=== PATIENT | male | born 1955 | race Caucasian/White ===

== ENCOUNTER 2021-09-01 15:49 | Observation (INO) | payer MEDICARE ==
[2021-09-01] MEDS ORDERED: Sodium Chloride 0.9% 1000 ML 0 ML ONE (17:11)
[2021-09-01] MEDS: Sodium Chloride 0.9% 1000 ML 1,000 ML IV SCH (17:25)
[2021-09-01] MEDS ORDERED: Sodium Chloride 0.9% 1000 ML 1,000 ML ONE (17:26)
[2021-09-01 18:07] LABS: Basophil (Absolute #) 0.03 (0-0.4); Eosinophil % 4.2 % (0.00-5.0); Eosinophil (Absolute #) 0.27 (0-0.5); Hematocrit 47.6 % (42-50); Hemoglobin 15.4 gm/dl (12.5-18.0); Lymphocyte (Absolute #) 1.69 (1.0-4.6); Lymphocytes % 26.4 % (24.0-44.0); Mean Cell Volume 96.6 fl (78-100); Mean Corpuscular Hemoglobin 31.2 pg (26-32); Mean Corpuscular Hgb Concent. 32.4 g/dl (32-36); Mean Platelet Volume 10.3 fl (7.5-11.0); Neutrophil % 57.9 % (36.0-66.0); Platelet Count 168 K/mm3 (150-450); Red Blood Count 4.93 M/mm3 (4.1-5.6); Red Cell Distribution Width 12.8 % (11.5-14.0); White Blood Count 6.4 K/mm3 (4.0-10.5)
[2021-09-01 18:12] LABS: INFLUENZA A NEGATIVE (NEGATIVE); INFLUENZA B NEGATIVE (NEGATIVE)
--- NOTE | 2021-09-01 18:18 | ERPHSYRPT ---
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 I had a bit of a cough and when I went to the grocery store later that day, I got winded pushing a cart and thought to myself something is not right." Triage Nursing Assessment: PT presented alert and oriented X3, skin wpd Pt ambulates with an upright steady gait, able to speak in clear full sentences pt got slightly short of breath ambulating to the bathroom. Physician History: This is a 66-year-old white male patient who is a [id number] diabetic and has elevated cholesterol who presents with worsening shortness of breath since Monday prior to this evaluation. The symptoms seem to be worse with exertion. He also has some substernal nonradiating, central chest tightness. He has no cardiac history. He does not see a overnight babysitter. His primary care physician is Dr. Jj. He is not vaccinated against the COVID-19 virus. He states he recently had a negative Covid test. Patient has no abdominal pain. He has not had any fevers recorded. He has no nausea vomiting or diarrhea symptoms. Patient's room air oxygenation levels running 97%. Patient states at home they have a pulse oximeter and it was running around 95%. Timing/Duration: worse Severity: mild Associated Symptoms: shortness of breath, cough, No nausea, No vomiting, No abdominal pain, No weakness Allergies/Adverse Reactions: No Known Drug Allergies Allergy (Verified 09/01/21 16:36) Home Medications: Atorvastatin Calcium [Lipitor 20MG Tablet] 20 mg PO DAILY 09/01/21 [History] Glimepiride 4 mg [Amaryl 4 mg] 4 mg PO DAILY 09/01/21 [History] Hx Tetanus, Diphtheria Vaccination/Date Given: Yes Hx Influenza Vaccination/Date Given: No Hx Pneumococcal Vaccination/Date Given: No Immunizations Up to Date: Yes Travel Risk - International Travel Have you traveled outside of the country in past 3 weeks: No - Coronavirus Screening Are you exhibiting any of the following symptoms?: Yes Symptoms: Cough: New Onset, Shortness of Breath Close contact with a COVID-19 positive Pt in past 14-21 Days: No - Vaccine Status Have you recieved a Covid-19 vaccination: No - Review of Systems Constitutional: No Symptoms Eyes: No Symptoms Ears, Nose, & Throat: No Symptoms Respiratory: Dyspnea, Dyspnea on Exertion (LOCKETT) Cardiac: Chest Pain (Described as substernal, central, nonradiating tightness) Abdominal/Gastrointestinal: No Symptoms Genitourinary Symptoms: No Symptoms Musculoskeletal: No Symptoms Skin: No Symptoms Neurological: No Symptoms Psychological: No Symptoms Endocrine: No Symptoms Hematologic/Lymphatic: No Symptoms Immunological/Allergic: No Symptoms All Other Systems: Reviewed and Negative - Past Medical History Pertinent Past Medical History: Yes Cardiac History: High Cholesterol Endocrine Medical History: Diabetes Type II - Past Surgical History Past Surgical History: Yes Other Surgical History: back surgery. left kidney malformed - Social History Smoking Status: Never smoker Exposure to second hand smoke: No Drug Use: none Patient Lives Alone: No - Nursing Vital Signs Nursing Vital Signs: Initial Vital Signs Temperature 97.8 F 09/01/21 16:22 Pulse Rate 85 09/01/21 16:22 Respiratory Rate 20 09/01/21 16:22 Blood Pressure 162/89 09/01/21 16:22 O2 Sat by Pulse Oximetry 97 09/01/21 16:22 Pain Scale Pain Intensity 0 - Physical Exam General Appearance: no apparent distress, alert, anxiety Eye Exam: PERRL/EOMI, eyes nml inspection Ears, Nose, Throat Exam: normal ENT inspection, moist mucous membranes Neck Exam: normal inspection, non-tender, supple, full range of motion Respiratory Exam: normal breath sounds, chest tenderness, lungs clear, respiratory distress, airway intact Cardiovascular Exam: regular rate/rhythm, normal heart sounds, normal peripheral pulses Gastrointestinal/Abdomen Exam: soft, normal bowel sounds, No tenderness, No guarding Rectal Exam: not done Back Exam: normal inspection, normal range of motion, No CVA tenderness, No vertebral tenderness Extremity Exam: normal inspection, normal range of motion, pelvis stable Neurologic Exam: alert, oriented x 3, cooperative, piercer operator II-XII nml as tested, normal mood/affect, nml cerebellar function, nml station & gait, sensation nml Skin Exam: normal color, warm, dry Lymphatic Exam: No adenopathy SpO2 Interpretation: normal SpO2: 96 O2 Delivery: Room Air - Course Nursing assessment & vital signs reviewed: Yes EKG Interpreted by Me: RATE (70), Sinus Rhythm, NORMAL AXIS, NORMAL INTERVALS, NORMAL QRS, NORMAL ST-T, Other (No acute ischemic changes on today's EKG. No comparison EKG.) Ordered Tests: Active Orders 24 hr Category Date Time Status [facility] Specialist STAT Care 09/01/21 16:59 Active EKG-ER Only STAT Care 09/01/21 16:59 Active IV Insertion STAT Care 09/01/21 16:59 Active Isolation, Initiate & Maintain STAT Care 09/01/21 16:58 Active Isolation, Initiate & Maintain STAT Care 09/01/21 16:59 Active Pulse Oximetry (ED) STAT Care 09/01/21 16:59 Active CHEST 1 VIEW (PORTABLE) Stat Exams 09/01/21 16:59 Taken CHEST WITH CONTRAST [CT] Stat Exams 09/01/21 18:44 Taken BLOOD CULTURE Stat Lab 09/01/21 17:49 Received CBC W DIFF Stat Lab 09/01/21 17:49 Completed CMP Stat Lab 09/01/21 17:49 Completed D-DIMER QUANTITATIVE Stat Lab 09/01/21 17:49 Completed INFLUENZA A+B DHARA Stat Lab 09/01/21 17:38 Completed Lactic Acid Stat Lab 09/01/21 17:46 Completed [place] Screen Stat Lab 09/01/21 17:49 Completed TROPONIN Q3H Lab 09/01/21 17:49 Completed TROPONIN Q3H Lab 09/01/21 20:00 Ordered TROPONIN Q3H Lab 09/01/21 23:00 Ordered Transfer Order Routine Transfer 09/01/21 Ordered Medication Summary Generic Name Dose Route Start Last Admin Trade Name Freq PRN Reason Stop Dose Admin Sodium Chloride 1,000 mls @ 100 mls/hr 09/01/21 17:00 09/01/21 17:25 Sodium Chloride 0.9% 1000 Ml IV 10/01/21 16:59 100 mls/hr .Q10H BUCKY Administration Discontinued Medications Generic Name Dose Route Start Last Admin Trade Name Freq PRN Reason Stop Dose Admin Apixaban 10 mg 09/01/21 19:52 Apixaban 2.5 Mg Tablet PO 09/01/21 19:53 STAT ONE Enoxaparin Sodium 80 mg 09/01/21 19:48 09/01/21 20:00 Enoxaparin Sodium 80 Mg/0.8 Ml Syringe SQ 09/01/21 19:49 80 mg STAT ONE Administration Enoxaparin Sodium Confirm 09/01/21 19:59 Enoxaparin Sodium 80 Mg/0.8 Ml Syringe Administered 09/01/21 20:00 Dose 80 mg SQ .STK-MED ONE Lab/Rad Data: Laboratory Result Diagrams 09/01/21 17:49 09/01/21 17:49 Laboratory Results 09/01/21 09/01/21 09/01/21 Range/Units 17:49 17:49 17:49 WBC (4.0-10.5) K/mm3 RBC (4.1-5.6) M/mm3 Hgb (12.5-18.0) gm/dl Hct (42-50) % MCV (78-100) fl MCH (26-32) pg MCHC (32-36) g/dl RDW (11.5-14.0) % Plt Count (150-450) K/mm3 MPV (7.5-11.0) fl Gran % (36.0-66.0) % Eos # (Auto) (0-0.5) Absolute Lymphs (auto) (1.0-4.6) Absolute Monos (auto) (0.0-1.3) Lymphocytes % (24.0-44.0) % Monocytes % (0.0-12.0) % Eosinophils % (0.00-5.0) % Basophils % (0.0-0.4) % Absolute Granulocytes (1.4-6.9) Basophils # (0-0.4) D-Dimer 19522 H* (215-500) ng/mL Sodium (137-145) mmol/L Potassium (3.5-5.1) mmol/L Chloride (98-107) mmol/L Carbon Dioxide (22-30) mmol/L Anion Gap (5-15) MEQ/L BUN (9-20) mg/dL Creatinine (0.66-1.25) mg/dL Estimated GFR ML/MIN Glucose (74-106) mg/dL Lactic Acid (0.4-2.0) Calcium (8.4-10.2) mg/dL Total Bilirubin (0.2-1.3) mg/dL AST (17-59) U/L ALT (0-50) U/L Alkaline Phosphatase (38-126) U/L Troponin I 0.013 (0.000-0.034) ng/mL Serum Total Protein (6.3-8.2) g/dL Albumin (3.5-5.0) g/dL Monoscreen NEGATIVE (Negative) Influenza Type A Ag (NEGATIVE) Influenza Type B Ag (NEGATIVE) Group A Strep Antibody (NEGATIVE) 09/01/21 09/01/21 09/01/21 Range/Units 17:49 17:49 17:46 WBC 6.4 (4.0-10.5) K/mm3 RBC 4.93 (4.1-5.6) M/mm3 Hgb 15.4 (12.5-18.0) gm/dl Hct 47.6 (42-50) % MCV 96.6 (78-100) fl MCH 31.2 (26-32) pg MCHC 32.4 (32-36) g/dl RDW 12.8 (11.5-14.0) % Plt Count 168 (150-450) K/mm3 MPV 10.3 (7.5-11.0) fl Gran % 57.9 (36.0-66.0) % Eos # (Auto) 0.27 (0-0.5) Absolute Lymphs (auto) 1.69 (1.0-4.6) Absolute Monos (auto) 0.70 (0.0-1.3) Lymphocytes % 26.4 (24.0-44.0) % Monocytes % 11.0 (0.0-12.0) % Eosinophils % 4.2 (0.00-5.0) % Basophils % 0.5 (0.0-0.4) % Absolute Granulocytes 3.70 (1.4-6.9) Basophils # 0.03 (0-0.4) D-Dimer (215-500) ng/mL Sodium 135 L (137-145) mmol/L Potassium 4.6 (3.5-5.1) mmol/L Chloride 101 (98-107) mmol/L Carbon Dioxide 27 (22-30) mmol/L Anion Gap 11.4 (5-15) MEQ/L BUN 16 (9-20) mg/dL Creatinine 1.11 (0.66-1.25) mg/dL Estimated GFR > 60.0 ML/MIN Glucose 84 (74-106) mg/dL Lactic Acid 1.1 (0.4-2.0) Calcium 9.5 (8.4-10.2) mg/dL Total Bilirubin 1.00 (0.2-1.3) mg/dL AST 27 (17-59) U/L ALT 29 (0-50) U/L Alkaline Phosphatase 94 (38-126) U/L Troponin I (0.000-0.034) ng/mL Serum Total Protein 6.1 L (6.3-8.2) g/dL Albumin 3.7 (3.5-5.0) g/dL Monoscreen (Negative) Influenza Type A Ag (NEGATIVE) Influenza Type B Ag (NEGATIVE) Group A Strep Antibody (NEGATIVE) 09/01/21 09/01/21 Range/Units 17:38 17:37 WBC (4.0-10.5) K/mm3 RBC (4.1-5.6) M/mm3 Hgb (12.5-18.0) gm/dl Hct (42-50) % MCV (78-100) fl MCH (26-32) pg MCHC (32-36) g/dl RDW (11.5-14.0) % Plt Count (150-450) K/mm3 MPV (7.5-11.0) fl Gran % (36.0-66.0) % Eos # (Auto) (0-0.5) Absolute Lymphs (auto) (1.0-4.6) Absolute Monos (auto) (0.0-1.3) Lymphocytes % (24.0-44.0) % Monocytes % (0.0-12.0) % Eosinophils % (0.00-5.0) % Basophils % (0.0-0.4) % Absolute Granulocytes (1.4-6.9) Basophils # (0-0.4) D-Dimer (215-500) ng/mL Sodium (137-145) mmol/L Potassium (3.5-5.1) mmol/L Chloride (98-107) mmol/L Carbon Dioxide (22-30) mmol/L Anion Gap (5-15) MEQ/L BUN (9-20) mg/dL Creatinine (0.66-1.25) mg/dL Estimated GFR ML/MIN Glucose (74-106) mg/dL Lactic Acid (0.4-2.0) Calcium (8.4-10.2) mg/dL Total Bilirubin (0.2-1.3) mg/dL AST (17-59) U/L ALT (0-50) U/L Alkaline Phosphatase (38-126) U/L Troponin I (0.000-0.034) ng/mL Serum Total Protein (6.3-8.2) g/dL Albumin (3.5-5.0) g/dL Monoscreen (Negative) Influenza Type A Ag NEGATIVE (NEGATIVE) Influenza Type B Ag NEGATIVE (NEGATIVE) Group A Strep Antibody NOT DETECTED (NEGATIVE) - Progress Progress Note: 09/01/21 18:23 Chest x-ray shows no acute cardiopulmonary process. 09/01/21 19:45 CAT scan of the chest with contrast shows diffuse bilateral nonoccluding pulmonary emboli left side greater than right. Medical decision making: This patient has bilateral nonoccluding pulmonary em boli. I spoke with his primary care doctor, Dr. Jj. We will start him on Lovenox and either Xarelto or Eliquis. We will check him for COVID-19 infection to determine whether or not the patient will be placed in the Covid unit or remain in our emergency department until a bed opens up. There are no beds available at several different hospitals so we are unable to transfer this patient out. The patient is aware of the above and agrees to follow this plan. Discussed with : Inna Counseled pt/family regarding: lab results, diagnosis, need for follow-up, rad results - Departure Departure Disposition: Observation (35) Clinical Impression: Shortness of breath, Pulmonary embolism, bilateral Condition: Fair Critical Care Time: Yes Critical Care Time(excluding separately billable procedures): Critical 30-74 mins Referrals: BROOKS JJ MD [Primary Care Provider] - Follow up/PCP as directed
[2021-09-01 18:25] LABS: ALBUMIN 3.7 g/dL (3.5-5.0); ALKALINE PHOSPHATASE 94 U/L (38-126); ANION GAP 11.4 MEQ/L (5-15); BLOOD UREA NITROGEN 16 mg/dL (9-20); CHLORIDE 101 mmol/L (98-107); Calcium 9.5 mg/dL (8.4-10.2); Carbon Dioxide 27 mmol/L (22-30); Creatinine 1 1.11 mg/dL (0.66-1.25); EST GLOMERULAR FILTRATION RATE > 60.0 ML/MIN; Glucose 84 mg/dL (74-106); Potassium 4.6 mmol/L (3.5-5.1); SGOT/AST 27 U/L (17-59); SGPT/ALT 29 U/L (0-50); SODIUM 135 mmol/L (137-145); Total Protein 6.1 g/dL (6.3-8.2)
[2021-09-01] MEDS ORDERED: ENOXAPARIN SODIUM SQ ONE ×2 (19:48→19:59)
[2021-09-01] MEDS ORDERED: ELIQUIS 2.5 MG TABLET PO ONE (19:52)
[2021-09-01 21:04] LABS: INFLUENZA A NEGATIVE (NEGATIVE); INFLUENZA B NEGATIVE (NEGATIVE); RESPIRATORY SYNCTIAL VIRUS NEGATIVE (Negative); SARS-CoV-2 Xpert Express NEGATIVE (NEGATIVE)
[2021-09-02] MEDS ORDERED: TYLENOL 325 MG PO PRN ×2 (06:47→13:03)
[2021-09-02] MEDS ORDERED: Zofran 4 MG/2 ML VIAL IV PRN ×2 (06:47→13:03)
[2021-09-02] MEDS ORDERED: Sodium Chloride 0.9% 1000 ML 1,000 ML ONE (06:59)
[2021-09-02] MEDS ORDERED: ENOXAPARIN SODIUM SQ ONE (06:59)
[2021-09-02] MEDS: ENOXAPARIN SODIUM SQ SCH (07:00)
[2021-09-02] MEDS: Sodium Chloride 0.9% 1000 ML 1,000 ML IV SCH (07:00)
[2021-09-02] MEDS: ELIQUIS 2.5 MG TABLET PO SCH ×3 (07:06→22:38)
--- NOTE | 2021-09-02 08:48 | XRAY ---
Indication: Cough and short of breath. Comparison: None Portable chest is clear. Heart and mediastinal structures within normal limits. Bony thorax intact with mild osteopenia and degenerative changes. Impression: Nonacute chest.
--- NOTE | 2021-09-02 08:52 | XRAY ---
Indication: Cough, short of breath, chest tightness/heaviness, and elevated d-dimer. Multiple contiguous axial images obtained through the chest using 100 cc Isovue 370 contrast and PE protocol. Comparison: None There is good opacification of the pulmonary arteries. Nonoccluding pulmonary emboli seen in the distal left main pulmonary artery extending into all lobar and lesser degree segmental branches. Additional tiny nonoccluding pulmonary emboli seen in distal right upper/right lower lobes pulmonary arteries extending into segmental branches. Heart is not enlarged. Aorta is normal in course and caliber. No pathologic mediastinal/hilar lymphadenopathy. Lungs demonstrates mild scattered peripheral subsegmental atelectasis/scarring and tiny posterior left lower lobe calcified granuloma. No suspicious pulmonary mass, infiltrate, consolidation, or effusion. Bony thorax intact with mild osteopenia and moderate degenerative changes throughout the spine. Limited upper abdomen demonstrate mild diffuse fatty liver and bilateral renal cortical scarring/thinning. Left kidney demonstrates subcentimeter benign-appearing cortical calcifications, largest 4 x 9 mm. Impression: 1. Diffuse nonoccluding bilateral pulmonary emboli as detailed. 2. Scattered subsegmental atelectasis/scarring and left lower lobe calcified granuloma. 3. Incidental fatty liver, bilateral renal cortical scarring/thinning, benign appearing left renal cortical calcifications, and chronic bony findings.
[2021-09-02] MEDS: ZOCOR 20MG PO SCH (15:43)
[2021-09-02] MEDS: AMARYL 4 MG PO SCH (15:43)
--- NOTE | 2021-09-02 19:02 | PCM.HP ---
History of Present Illness - Chief Complaint Chief Complaint: sudden onset of shortness of breath for 3-4 hours History of Present Illness: is a 66-year-old white male patient who is a [id number] diabetic and has elevated cholesterol who presents with worsening shortness of breath since Monday prior to this evaluation. The symptoms seem to be worse with exertion. He also has some substernal nonradiating, central chest tightness. He has no cardiac history. He does not see a dispatcher service chief. His primary care physician is Dr. Garcia. He is not vaccinated against the COVID- 19 virus. He states he recently had a negative Covid test. Patient has no abdominal pain. He has not had any fevers recorded. He has no nausea vomiting or diarrhea symptoms. - Review of Systems Constitutional: No Fever, No Chills Eyes: No Symptoms Ears, Nose, & Throat: No Symptoms Respiratory: Short Of Breath, No Cough Cardiac: No Chest Pain, No Edema, No Syncope Abdominal/Gastrointestinal: No Abdominal Pain, No Nausea, No Vomiting, No Diarrhea Genitourinary Symptoms: No Dysuria Musculoskeletal: No Back Pain, No Neck Pain Skin: No Rash Neurological: No Dizziness, No Focal Weakness, No Sensory Changes Psychological: No Symptoms Endocrine: No Symptoms Hematologic/Lymphatic: No Symptoms Immunological/Allergic: No Symptoms Medications & Allergies Home Medications: Home Medication List Atorvastatin Calcium [Lipitor 20MG Tablet] 20 mg PO DAILY 09/01/21 [History Confirmed 09/01/21] Glimepiride 4 mg [Amaryl 4 mg] 4 mg PO DAILY 09/01/21 [History Confirmed 09/01/21] Apixaban [Eliquis] 10 mg PO BID 30 Days #80 tablet 09/02/21 [Rx] Allergies/Adverse Reactions: Allergies Allergy/AdvReac Type Severity Reaction Status Date / Time No Known Drug Allergies Allergy Verified 09/01/21 16:36 - Past Medical History Past Medical History: Yes Cardiac History: High Cholesterol Endocrine Medical History: Diabetes Type II - Past Surgical History Past Surgical History: Yes Other Surgical History: back surgery. left kidney malformed. LITHOTRIPSY - Social History Smoking Status: Never smoker Exposure to second hand smoke: No Alcohol: None Drug Use: none - Physical Exam Vital Signs: Vital Signs - 24 hr Temp Pulse Resp BP Pulse Ox 09/02/21 18:51 92 L 12/30/21 16:00 98.9 F 66 21 148/79 94 L 09/02/21 14:01 98.6 F 67 19 132/79 94 L 09/02/21 13:33 93 L 09/02/21 13:29 71 20 152/78 96 09/02/21 12:00 68 20 133/91 98 09/02/21 11:04 97.2 F 61 20 119/69 97 09/02/21 10:05 97.6 F 64 20 119/69 98 09/02/21 09:40 98.6 F 62 18 117/75 98 09/02/21 08:36 98.6 F 67 20 129/79 98 09/02/21 07:00 62 24 138/88 94 L 09/02/21 06:00 54 L 20 136/82 96 09/02/21 05:00 73 21 128/79 97 09/02/21 04:00 59 L 22 130/85 96 09/02/21 03:00 63 22 141/89 97 09/02/21 02:00 65 28 H 134/88 96 09/02/21 01:00 66 18 135/82 95 09/02/21 00:00 65 20 166/82 92 L 09/01/21 23:00 74 22 150/92 94 L 09/01/21 22:00 79 24 148/83 91 L 09/01/21 21:00 80 24 157/90 96 09/01/21 20:10 85 25 H 155/91 93 L 09/01/21 20:02 96 09/01/21 19:22 73 25 H 142/87 94 L General Appearance: no apparent distress, alert Neurologic Exam: alert, oriented x 3, cooperative, normal mood/affect, nml cerebellar function, nml station & gait, sensation nml, No motor deficits Eye Exam: PERRL/EOMI, eyes nml inspection Ears, Nose, Throat Exam: normal ENT inspection, TMs normal, pharynx normal, moist mucous membranes Neck Exam: normal inspection, non-tender, supple, full range of motion Respiratory Exam: rhonchi, wheezing, No respiratory distress Cardiovascular Exam: regular rate/rhythm, normal heart sounds, normal peripheral pulses Gastrointestinal/Abdomen Exam: soft, normal bowel sounds, No tenderness, No mass Back Exam: normal inspection, normal range of motion, No CVA tenderness, No vertebral tenderness Extremity Exam: normal inspection, normal range of motion, pelvis stable Skin Exam: normal color, warm, dry, No rash Lymphatic Exam: No adenopathy Results - Labs Lab/Micro Results: Lab Results-Last 24 Hours 09/01/21 09/01/21 09/02/21 Range/Units 19:58 20:23 16:46 POC Glucometer 199 H (74 to 106) mg/dL Troponin I < 0.012 (0.000-0.034) ng/mL Influenza Type A Ag NEGATIVE (NEGATIVE) Influenza Type B Ag NEGATIVE (NEGATIVE) RSV (PCR) NEGATIVE (Negative) SARS-CoV-2 (PCR) NEGATIVE (NEGATIVE) - Radiology Impressions Radiology Exams & Impressions: Radiology Procedures Category Date Time Status CHEST 1 VIEW (PORTABLE) Stat Exams 09/01/21 16:59 Completed CHEST WITH CONTRAST [CT] Stat Exams 09/01/21 18:[address]/CHEST WITH CONTRAST Indication: Cough, short of breath, chest tightness/heaviness, and elevated d-dimer. Multiple contiguous axial images obtained through the chest using 100 cc Isovue 370 contrast and PE protocol. Comparison: None There is good opacification of the pulmonary arteries. Nonoccluding pulmonary emboli seen in the distal left main pulmonary artery extending into all lobar and lesser degree segmental branches. Additional tiny nonoccluding pulmonary emboli seen in distal right upper/right lower lobes pulmonary arteries extending into segmental branches. Heart is not enlarged. Aorta is normal in course and caliber. No pathologic mediastinal/hilar lymphadenopathy. Lungs demonstrates mild scattered peripheral subsegmental atelectasis/scarring and tiny posterior left lower lobe calcified granuloma. No suspicious pulmonary mass, infiltrate, consolidation, or effusion. Bony thorax intact with mild osteopenia and moderate degenerative changes throughout the spine. Limited upper abdomen demonstrate mild diffuse fatty liver and bilateral renal cortical scarring/thinning. Left kidney demonstrates subcentimeter benign-appearing cortical calcifications, largest 4 x 9 mm. Impression: 1. Diffuse nonoccluding bilateral pulmonary emboli as detailed. 2. Scattered subsegmental atelectasis/scarring and left lower lobe calcified granuloma. 3. Incidental fatty liver, bilateral renal cortical scarring/thinning, benign appearing left renal cortical calcifications, and chronic bony findings. - Other Procedures and Tests Respiratory Therapy 09/02/21 06:47 Oxygen Nasal Cannula 2 lpm Assessment/Plan (1) Pulmonary embolism, bilateral Current Visit: Yes Status: Acute Assessment & Plan: Chief Complaint Diagnosis Bilateral pulmonary emboli Allergies Allergy/AdvReac Type Severity Reaction Status Date / Time No Known Drug Allergies Allergy Verified 09/01/21 16:36 Vital Signs (Last 24 hours) Temp Pulse Resp BP Pulse Ox 09/02/21 18:51 92 L 09/02/21 16:00 98.9 F 66 21 148/79 94 L 09/02/21 14:01 98.6 F 67 19 132/79 94 L 09/02/21 13:33 93 L 09/02/21 13:29 71 20 152/78 96 09/02/21 12:00 68 20 133/91 98 09/02/21 11:04 97.2 F 61 20 119/69 97 09/02/21 10:05 97.6 F 64 20 119/69 98 09/02/21 09:40 98.6 F 62 18 117/75 98 09/02/21 08:36 98.6 F 67 20 129/79 98 09/02/21 07:00 62 24 138/88 94 L 09/02/21 06:00 54 L 20 136/82 96 09/02/21 05:00 73 21 128/79 97 09/02/21 04:00 59 L 22 130/85 96 09/02/21 03:00 63 22 141/89 97 09/02/21 02:00 65 28 H 134/88 96 09/02/21 01:00 66 18 135/82 95 09/02/21 00:00 65 20 166/82 92 L 09/01/21 23:00 74 22 150/92 94 L 09/01/21 22:00 79 24 148/83 91 L 09/01/21 21:00 80 24 157/90 96 09/01/21 20:10 85 25 H 155/91 93 L 09/01/21 20:02 96 09/01/21 19:22 73 25 H 142/87 94 L Home Medications Medication Instructions Recorded Confirmed Last Taken Type Atorvastatin Calcium [Lipitor 20MG 20 mg PO DAILY 09/01/21 09/01/21 Unknown History Tablet] Glimepiride 4 mg [Amaryl 4 4 mg PO DAILY 09/01/21 09/01/21 Unknown History mg] Apixaban [Eliquis] 10 mg PO BID 30 Days #80 tablet 09/02/21 Unknown Rx Current Medications Generic Name Dose Route Start Last Admin Trade Name Freq PRN Reason Stop Dose Admin Acetaminophen 650 mg 09/02/21 13:03 Acetaminophen 325 Mg Tablet PO 10/02/21 06:46 Q4H PRN PRN PAIN, FEVER, HEADACHE Apixaban 10 mg 09/02/21 06:47 09/02/21 15:29 Apixaban 2.5 Mg Tablet PO 10/02/21 06:46 Not Given BID BUCKY Glimepiride 4 mg 09/02/21 16:00 09/02/21 15:43 Glimepiride 4 Mg Tablet PO 10/02/21 15:59 4 mg BREAKFAST BUCKY Administration Ondansetron HCl 4 mg 09/02/21 13:03 Ondansetron Hcl 4 Mg/2 Ml Vial IV 10/02/21 06:46 Q6H PRN PRN NAUSEA/VOMITING Simvastatin 20 mg 09/02/21 15:00 09/02/21 15:43 Simvastatin 20 Mg Tablet PO 10/02/21 14:59 20 mg DAILY BUCKY Administration Discontinued Medications Generic Name Dose Route Start Last Admin Trade Name Markieq PRN Reason Stop Dose Admin Acetaminophen 650 mg 09/02/21 06:47 Acetaminophen 325 Mg Tablet PO 10/02/21 06:46 Q4H PRN PRN PAIN, FEVER, HEADACHE Apixaban 10 mg 09/01/21 19:52 09/01/21 20:02 Apixaban 2.5 Mg Tablet PO 09/01/21 19:53 10 mg STAT ONE Administration Enoxaparin Sodium 80 mg 09/01/21 19:48 09/01/21 20:00 Enoxaparin Sodium 80 Mg/0.8 Ml Syringe SQ 09/01/21 19:49 80 mg STAT ONE Administration Enoxaparin Sodium Confirm 09/01/21 19:59 Enoxaparin Sodium 80 Mg/0.8 Ml Syringe Administered 09/01/21 20:00 Dose 80 mg SQ .STK-MED ONE Enoxaparin Sodium 80 mg 09/02/21 06:47 09/02/21 07:00 Enoxaparin Sodium 80 Mg/0.8 Ml Syringe SQ 10/02/21 06:46 80 mg BID BUCKY Administration Enoxaparin Sodium Confirm 09/02/21 06:59 Enoxaparin Sodium 80 Mg/0.8 Ml Syringe Administered 09/02/21 07:00 Dose 80 mg SQ .STK-MED ONE Sodium Chloride 1,000 mls @ 100 mls/hr 09/01/21 17:00 09/02/21 07:00 Sodium Chloride 0.9% 1000 Ml IV 10/01/21 16:59 100 mls/hr .Q10H BUCKY Administration Sodium Chloride Confirm 09/02/21 06:59 Sodium Chloride 0.9% 1000 Ml Administered 09/02/21 07:00 Dose 1,000 mls @ ud .ROUTE .STK-MED ONE Sodium Chloride Confirm 09/01/21 17:11 Sodium Chloride 0.9% 1000 Ml Administered 09/01/21 17:12 Dose 1,000 mls @ ud .ROUTE .STK-MED ONE Sodium Chloride Confirm 09/01/21 17:26 Sodium Chloride 0.9% 1000 Ml Administered 09/01/21 17:27 Dose 1,000 mls @ ud .ROUTE .STK-MED ONE Ondansetron HCl 4 mg 09/02/21 06:47 Ondansetron Hcl 4 Mg/2 Ml Vial IV 10/02/21 06:46 Q6H PRN PRN NAUSEA/VOMITING Intake & Output (Last 24 hours) 08/31/21 09/01/21 09/02/21 09/03/21 11:59 11:59 11:59 11:59 Output Total 300 Balance -300 Weight 86.4 kg 87.7 kg Microbiology Results (Last 24 hours) 09/01/21 17:49 Blood Blood Culture Gram Stain - Pending 09/01/21 17:49 Blood Blood Culture - Pending 09/01/21 17:30 Blood Blood Culture Gram Stain - Pending 09/01/21 17:30 Blood Blood Culture - Pending Laboratory Results (Last 24 hours) 09/02/21 09/01/21 09/01/21 16:46 20:23 19:58 POC Glucometer 199 H Troponin I < 0.012 Influenza Type A Ag NEGATIVE Influenza Type B Ag NEGATIVE RSV (PCR) NEGATIVE SARS-CoV-2 (PCR) NEGATIVE Orders (Last 24 hours) Category Date Time Status Bedrest with BRP/BSC TOLERATED Activity 09/02/21 06:47 Active Code Status Order ROUTINE Care 09/02/21 06:47 Active POCT Glucose Check ACHS Care 09/02/21 13:[address] in Observation ROUTINE Care 09/02/21 06:47 Active Consistent Carbohydrate Diet 2000 Calorie Diet 09/02/21 Dinner Active Discharge Planning,Consult Routine Discharge 09/02/21 Active CHEST WITH CONTRAST [CT] Stat Exams 09/01/21 18:44 Completed HEMOGLOBIN A1C Urgent Lab 09/02/21 19:00 Ordered POCT GLUCOSE Stat Lab 09/02/21 16:46 Completed TROPONIN Q3H Lab 09/01/21 20:23 Completed Acetaminophen 325 mg [Tylenol 325 mg] Med 09/02/21 06:47 Discontinued 650 mg PO Q4H PRN PRN Acetaminophen 325 mg [Tylenol 325 mg] Med 09/02/21 13:03 Active 650 mg PO Q4H PRN PRN Apixaban [Eliquis 2.5 mg Tablet] Med 09/02/21 06:47 Active 10 mg PO BID Apixaban [Eliquis 2.5 mg Tablet] Med 09/01/21 19:52 Discontinued 10 mg PO STAT ONE Enoxaparin Sodium [Enoxaparin Sodium] Med 09/01/21 19:59 Discontinued 80 mg SQ .STK-MED ONE Enoxaparin Sodium [Enoxaparin Sodium] Med 09/02/21 06:59 Discontinued 80 mg SQ .STK-MED ONE Enoxaparin Sodium [Enoxaparin Sodium] Med 09/02/21 06:47 Discontinued 80 mg SQ BID Enoxaparin Sodium [Enoxaparin Sodium] Med 09/01/21 19:48 Discontinued 80 mg SQ STAT ONE Glimepiride 4 mg [Amaryl 4 mg] Med 09/02/21 16:00 Active 4 mg PO BREAKFAST NaCl 0.9% 1000 ml [Sodium Chloride 0.9% 1000 ML] 1,000 Med 09/02/21 06:59 Discontinued ml .ROUTE UD Ondansetron HCl 4 mg/2 ml [Zofran 4 MG/2 ML VIAL] Med 09/02/21 06:47 Discontinued 4 mg IV Q6H PRN PRN Ondansetron HCl 4 mg/2 ml [Zofran 4 MG/2 ML VIAL] Med 09/02/21 13:03 Active 4 mg IV Q6H PRN PRN Simvastatin 20Mg [Zocor 20Mg] Med 09/02/21 15:00 Active 20 mg PO DAILY Oxygen Nasal Cannula 2 lpm RT 09/02/21 06:47 Active Pulse Oximetry .spot check RT 09/02/21 13:33 Active Patient Care Notes (Last 24 hours) 09/02/21 15:21 Case Management Note by Kristine Way [facility] CLOSED- [facility] IN . THEY LOOKED PATIENT UP- D/T THE ORIGINAL [facility] BEING CLOSED THEY ARE UNABLE TO SEE ANYTHING BESIDES THAT PATIENT DOES NOT HAVE A CURRENT PROFILE WITH THEM OR AN INSURANCE ON FILE. WILL CALL AGAIN IN THE AM- [facility] THAT SCRIPT WAS SENT TO WILL BE OPEN 9-5 TOMORROW. PRIMARY RN NOTIFIED Initialized on 09/02/21 15:21 - END OF NOTE Code(s): I26.99 - OTHER PULMONARY EMBOLISM WITHOUT ACUTE COR PULMONALE (2) Shortness of breath Current Visit: Yes Status: Acute Code(s): R06.02 - SHORTNESS OF BREATH
[2021-09-03] MEDS: AMARYL 4 MG PO SCH (08:48)
[2021-09-03] MEDS: ZOCOR 20MG PO SCH (08:49)
[2021-09-03] MEDS: ELIQUIS 2.5 MG TABLET PO SCH (08:49)
[2021-09-03] MEDS: Sodium Chloride 0.9% 1000 ML 1,000 ML IV SCH (09:14)
[2021-09-03] MEDS: ENOXAPARIN SODIUM SQ SCH (09:14)
[2021-09-03] MEDS ORDERED: NON-FORMULARY ITEM (Atorvastatin Calcium 20 MG Tab) PO SCH (10:00)
--- NOTE | 2021-09-03 10:40 | PCM.DS ---
Discharge Summary Date of Admission: 09/02/21 12:35 Admitting Physician: BROOKS JJ Primary Care Provider: BROOKS JJ Allergies Allergies No Known Drug Allergies Allergy (Verified 09/01/21 16:36) Hospital Summary - Hospital Course Hospital Course: Chief Complaint Diagnosis sudden onset of shortness of breath for 3-4 hours Allergies Allergy/AdvReac Type Severity Reaction Status Date / Time No Known Drug Allergies Allergy Verified 09/01/21 16:36 Vital Signs (Last 24 hours) Temp Pulse Resp BP Pulse Ox 09/03/21 08:00 98.6 F 60 23 148/78 97 09/03/21 07:47 16 09/03/21 07:42 93 L 09/03/21 04:00 98.0 F 58 L 17 131/72 96 09/03/21 00:00 98.6 F 67 17 153/78 95 09/02/21 20:00 98.6 F 72 18 149/75 94 L 09/02/21 18:51 92 L 09/02/21 16:00 98.9 F 66 21 148/79 94 L 09/02/21 14:01 98.6 F 67 19 132/79 94 L 09/02/21 13:33 93 L 09/02/21 13:29 71 20 152/78 96 09/02/21 12:00 68 20 133/91 98 09/02/21 11:04 97.2 F 61 20 119/69 97 Home Medications Medication Instructions Recorded Confirmed Last Taken Type Atorvastatin Calcium [Lipitor 20MG 20 mg PO DAILY 09/01/21 09/01/21 Unknown History Tablet] Glimepiride 4 mg [Amaryl 4 4 mg PO DAILY 09/01/21 09/01/21 Unknown History mg] Rivaroxaban [Xarelto] 1 each PO UD #1 packet 09/03/21 Unknown Rx Current Medications Generic Name Dose Route Start Last Admin Trade Name Freq PRN Reason Stop Dose Admin Acetaminophen 650 mg 09/02/21 13:03 Acetaminophen 325 Mg Tablet PO 10/02/21 06:46 Q4H PRN PRN PAIN, FEVER, HEADACHE Apixaban 10 mg 09/02/21 06:47 09/03/21 08:49 Apixaban 2.5 Mg Tablet PO 10/02/21 06:46 10 mg BID BUCKY Administration Glimepiride 4 mg 09/02/21 16:00 09/03/21 08:48 Glimepiride 4 Mg Tablet PO 10/02/21 15:59 4 mg BREAKFAST BUCKY Administration Ondansetron HCl 4 mg 09/02/21 13:03 Ondansetron Hcl 4 Mg/2 Ml Vial IV 10/02/21 06:46 Q6H PRN PRN NAUSEA/VOMITING Simvastatin 20 mg 09/02/21 15:00 09/03/21 08:49 Simvastatin 20 Mg Tablet PO 10/02/21 14:59 20 mg DAILY BUCKY Administration Discontinued Medications Generic Name Dose Route Start Last Admin Trade Name Freq PRN Reason Stop Dose Admin Acetaminophen 650 mg 09/02/21 06:47 Acetaminophen 325 Mg Tablet PO 10/02/21 06:46 Q4H PRN PRN PAIN, FEVER, HEADACHE Apixaban 10 mg 09/01/21 19:52 09/01/21 20:02 Apixaban 2.5 Mg Tablet PO 09/01/21 19:53 10 mg STAT ONE Administration Enoxaparin Sodium 80 mg 09/01/21 19:48 09/01/21 20:00 Enoxaparin Sodium 80 Mg/0.8 Ml Syringe SQ 09/01/21 19:49 80 mg STAT ONE Administration Enoxaparin Sodium Confirm 09/01/21 19:59 Enoxaparin Sodium 80 Mg/0.8 Ml Syringe Administered 09/01/21 20:00 Dose 80 mg SQ .STK-MED ONE Enoxaparin Sodium 80 mg 09/02/21 06:47 09/03/21 09:14 Enoxaparin Sodium 80 Mg/0.8 Ml Syringe SQ 10/02/21 06:46 Not Given BID BUCKY Enoxaparin Sodium Confirm 09/02/21 06:59 Enoxaparin Sodium 80 Mg/0.8 Ml Syringe Administered 09/02/21 07:00 Dose 80 mg SQ .STK-MED ONE Sodium Chloride 1,000 mls @ 100 mls/hr 09/01/21 17:00 09/03/21 09:14 Sodium Chloride 0.9% 1000 Ml IV 10/01/21 16:59 Not Given .Q10H BUCKY Sodium Chloride Confirm 09/02/21 06:59 Sodium Chloride 0.9% 1000 Ml Administered 09/02/21 07:00 Dose 1,000 mls @ ud .ROUTE .STK-MED ONE Sodium Chloride Confirm 09/01/21 17:11 Sodium Chloride 0.9% 1000 Ml Administered 09/01/21 17:12 Dose 1,000 mls @ ud .ROUTE .STK-MED ONE Sodium Chloride Confirm 09/01/21 17:26 Sodium Chloride 0.9% 1000 Ml Administered 09/01/21 17:27 Dose 1,000 mls @ ud .ROUTE .STK-MED ONE Ondansetron HCl 4 mg 09/02/21 06:47 Ondansetron Hcl 4 Mg/2 Ml Vial IV 10/02/21 06:46 Q6H PRN PRN NAUSEA/VOMITING Intake & Output (Last 24 hours) 08/31/21 09/01/21 09/02/21 09/03/21 11:59 11:59 11:59 11:59 Intake Total 1360 Output Total 300 Balance -300 1360 Weight 86.4 kg 87.7 kg Microbiology Results (Last 24 hours) 09/01/21 17:49 Blood Blood Culture Gram Stain - Pending 09/01/21 17:49 Blood Blood Culture - Preliminary NO GROWTH TO DATE 09/01/21 17:30 Blood Blood Culture Gram Stain - Pending 09/01/21 17:30 Blood Blood Culture - Preliminary NO GROWTH TO DATE Laboratory Results (Last 24 hours) 09/03/21 09/03/21 09/02/21 07:44 05:10 20:33 POC Glucometer 78 193 H Hemoglobin A1c 6.93 H 09/02/21 16:46 POC Glucometer 199 H Hemoglobin A1c Orders (Last 24 hours) Category Date Time Status WALK [Walk With Assistance] TOLERATED Activity 09/03/21 09:43 Active Miscellaneous Nursing Order ROUTINE Care 09/03/21 09:46 Active POCT Glucose Check ACHS Care 09/02/21 13:51 Active Consistent Carbohydrate Diet 2000 Calorie Diet 09/02/21 Dinner Active Discharge Routine Discharge 09/03/21 Ordered Discharge/Telephone Order Routine Discharge 09/03/21 Active HEMOGLOBIN A1C Urgent Lab 09/02/21 19:00 Completed POCT GLUCOSE Stat Lab 09/02/21 16:46 Completed POCT GLUCOSE Stat Lab 09/02/21 20:33 Completed POCT GLUCOSE Stat Lab 09/03/21 07:44 Completed Acetaminophen 325 mg [Tylenol 325 mg] Med 09/02/21 13:03 Active 650 mg PO Q4H PRN PRN Glimepiride 4 mg [Amaryl 4 mg] Med 09/02/21 16:00 Active 4 mg PO BREAKFAST Ondansetron HCl 4 mg/2 ml [Zofran 4 MG/2 ML VIAL] Med 09/02/21 13:03 Activ e 4 mg IV Q6H PRN PRN Simvastatin 20Mg [Zocor 20Mg] Med 09/02/21 15:00 Active 20 mg PO DAILY Pulse Oximetry .spot check RT 09/02/21 13:33 Active Qualify for Home Oxygen TODAY RT 09/03/21 08:25 Active Patient Care Notes (Last 24 hours) 09/03/21 10:32 Nursing Note by Risa Diaz Patient ambulated approximately 200 feet on room air and pulse oximeter saturation was 92% during that time. Initialized on 09/03/21 10:32 - END OF NOTE 09/03/21 09:43 Nursing Note by Raven Todd SPOKE DR. JJ. DISCHARGE PATIENT WHEN ELIQUIS IS SET UP THROUGH INSURANCE. WALK PATIENT AND CHECK O2 SATURATIONS Initialized on 09/03/21 09:43 - END OF NOTE 09/02/21 15:21 Case Management Note by Kristine Way [facility] CLOSED- [facility] IN . THEY LOOKED PATIENT U P- D/T THE ORIGINAL [facility] BEING CLOSED THEY ARE UNABLE TO SEE ANYTHING BESIDES THAT PATIENT DOES NOT HAVE A CURRENT PROFILE WITH THEM OR AN INSURANCE ON FILE. WILL CALL AGAIN IN THE AM- [facility] THAT SCRIPT WAS SENT TO WILL BE OPEN 9-5 TOMORROW. PRIMARY RN NOTIFIED Initialized on 09/02/21 15:21 - END OF NOTE Eliquis is not covered by his insurance, So Xarelto starter pack is given. All Important info about Xarelto given. Patient also informed about his medical problem. - Vitals & Intake/Output Vital Signs: Vital Signs Temperature 98.6 F 09/03/21 08:00 Pulse Rate 60 09/03/21 08:00 Respiratory Rate 23 09/03/21 08:00 Blood Pressure 148/78 09/03/21 08:00 O2 Sat by Pulse Oximetry 97 09/03/21 08:00 Intake & Output: Intake & Output 08/31/21 09/01/21 09/02/21 09/03/21 11:59 11:59 11:59 11:59 Intake Total 1360 Output Total 300 Balance -300 1360 Weight 86.4 kg 87.7 kg - Lab Result Diagrams: 09/01/21 17:49 09/01/21 17:49 Lab Results-Last 24 Hrs: Lab Results-Last 24 Hours 09/02/21 09/02/21 09/03/21 Range/Units 16:46 20:33 05:10 POC Glucometer 199 H 193 H (74 to 106) mg/dL Hemoglobin A1c 6.93 H (4.5-6.0) % 09/03/21 Range/Units 07:44 POC Glucometer 78 (74 to 106) mg/dL Hemoglobin A1c (4.5-6.0) % Micro Results-Entire Visit: Microbiology 09/01/21 17:49 Blood Culture - Preliminary Blood NO GROWTH TO DATE 09/01/21 17:30 Blood Culture - Preliminary Blood NO GROWTH TO DATE Accuchecks Date 09/02/21 Time 22:00 - Radiology Exams Ordered Rad Exams-Entire Visit: Radiology Procedures Category Date Time Status CHEST 1 VIEW (PORTABLE) Stat Exams 09/01/21 16:59 Completed CHEST WITH CONTRAST [CT] Stat Exams 09/01/21 18:44 Completed Name: JANN MEADE Attending Physician: CATA KASPER IMAGING REPORT : 1955 Age: 66 Sex: M Location: ED Report #: [id number] Exam Date: 09/01/21 Status: REG ER Radiology #: Procedures: [id number] CT/CHEST WITH CONTRAST Indication: Cough, short of breath, chest tightness/heaviness, and elevated d-dimer. Multiple contiguous axial images obtained through the chest using 100 cc Isovue 370 contrast and PE protocol. Comparison: None There is good opacification of the pulmonary arteries. Nonoccluding pulmonary emboli seen in the distal left main pulmonary artery extending into all lobar and lesser degree segmental branches. Additional tiny nonoccluding pulmonary emboli seen in distal right upper/right lower lobes pulmonary arteries extending into segmental branches. Heart is not enlarged. Aorta is normal in course and caliber. No pathologic mediastinal/hilar lymphadenopathy. Lungs demonstrates mild scattered peripheral subsegmental atelectasis/scarring and tiny posterior left lower lobe calcified granuloma. No suspicious pulmonary mass, infiltrate, consolidation, or effusion. Bony thorax intact with mild osteopenia and moderate degenerative changes throughout the spine. Limited upper abdomen demonstrate mild diffuse fatty liver and bilateral renal cortical scarring/thinning. Left kidney demonstrates subcentimeter benign-appearing cortical calcifications, largest 4 x 9 mm. Impression: 1. Diffuse nonoccluding bilateral pulmonary emboli as detailed. 2. Scattered subsegmental atelectasis/scarring and left lower lobe calcified granuloma. 3. Incidental fatty liver, bilateral renal cortical scarring/thinning, benign appearing left renal cortical calcifications, and chronic bony findings. - Procedures and Test Procedures and Tests throughout Hospitalization: Therapy Orders & Screens 09/02/21 06:47 Oxygen Nasal Cannula 2 lpm Comment: 09/03/21 08:25 Qualify for Home Oxygen TODAY Comment: Diagnosis: sudden onset of shortness of breath for 3-4 hours Discharge Exam General Appearance: no apparent distress, alert Neurologic Exam: alert, oriented x 3, cooperative, normal mood/affect, nml cerebellar function, sensation nml, No motor deficits Eye Exam: PERRL, EOMI, eyes nml inspection Ears, Nose, Throat Exam: normal ENT inspection, pharynx normal, moist mucous membranes Neck Exam: normal inspection, non-tender, supple, full range of motion Respiratory Exam: normal breath sounds, lungs clear, No respiratory distress Cardiovascular Exam: regular rate/rhythm, normal heart sounds Gastrointestinal/Abdomen Exam: soft, No tenderness, No mass Male Genitalia Exam: deferred Rectal Exam: deferred Back Exam: normal inspection, normal range of motion, No CVA tenderness, No vertebral tenderness Extremity Exam: normal inspection, normal range of motion Skin Exam: normal color, warm, dry Final Diagnosis/Problem List - Final Discharge Diagnosis/Problem (1) Pulmonary embolism, bilateral Current Visit: Yes Status: Acute Priority: High Assessment & Plan: Abnormal Lab Results 09/02/21 09/02/21 09/03/21 Range/Units 16:46 20:33 05:10 POC Glucometer 199 H 193 H (74 to 106) mg/dL Hemoglobin A1c 6.93 H (4.5-6.0) % Medication Adminisitration Report Acetaminophen (Acetaminophen 325 Mg Tablet) 650 mg PO Q4H PRN PRN PRN Reason: PAIN, FEVER, HEADACHE Stop: 10/02/21 06:46 Apixaban (Apixaban 2.5 Mg Tablet) 10 mg PO BID [facility] Stop: 10/02/21 06:46 Last Admin: 09/03/21 08:49 Dose: 10 mg Documented by: Admin: 09/02/21 22:38 Dose: 10 mg Documented by: Admin: 09/02/21 15:29 Dose: Not Given Documented by: CORINA Non-Admin Reason: GIVEN IN ER Admin: 09/02/21 07:06 Dose: 10 mg Documented by: SHIV Medication Administration (PO Document 09/02/21 07:06 (Rec: 09/02/21 07:06 [id number]) Medication Administration PO Med Administration Yes Glimepiride (Glimepiride 4 Mg Tablet) 4 mg PO BREAKFAST [facility] Stop: 10/02/21 15:59 Last Admin: 09/03/21 08:48 Dose: 4 mg Documented by: Admin: 09/02/21 15:43 Dose: 4 mg Documented by: CORINA Ondansetron HCl (Ondansetron Hcl 4 Mg/2 Ml Vial) 4 mg IV Q6H PRN PRN PRN Reason: NAUSEA/VOMITING Stop: 10/02/21 06:46 Simvastatin (Simvastatin 20 Mg Tablet) 20 mg PO DAILY [facility] Stop: 10/02/21 14:59 Last Admin: 09/03/21 08:49 Dose: 20 mg Documented by: Admin: 09/02/21 15:43 Dose: 20 mg Documented by: CORINA Discontinued Medications Acetaminophen (Acetaminophen 325 Mg Tablet) 650 mg PO Q4H PRN PRN PRN Reason: PAIN, FEVER, HEADACHE Stop: 10/02/21 06:46 Apixaban (Apixaban 2.5 Mg Tablet) 10 mg PO STAT ONE Stop: 09/01/21 19:53 Last Admin: 09/01/21 20:02 Dose: 10 mg Documented by: LILIANA Medication Administration (PO Document 09/01/21 20:02 BW (Rec: 09/01/21 20:02 BW [id number]) Medication Administration PO Med Administration Yes Enoxaparin Sodium (Enoxaparin Sodium 80 Mg/0.8 Ml Syringe) 80 mg SQ STAT ONE Stop: 09/01/21 19:49 Last Admin: 09/01/21 20:00 Dose: 80 mg Documented by: [email or web address] Medication Administration Document 09/01/21 20:00 BW (Rec: 09/01/21 20:00 BW [id number]) Type of Injection IM/SQ Injection Yes Antibiotic IM Injection No Enoxaparin Sodium (Enoxaparin Sodium 80 Mg/0.8 Ml Syringe) Confirm Administered Dose 80 mg SQ .STK-MED ONE Stop: 09/01/21 20:00 Enoxaparin Sodium (Enoxaparin Sodium 80 Mg/0.8 Ml Syringe) 80 mg SQ BID BUCKY Stop: 10/02/21 06:46 Last Admin: 09/03/21 09:14 Dose: Not Given Documented by: BEVERLY Non-Admin Reason: DC] Admin: 09/02/21 07:00 Dose: 80 mg Documented by: SHIV Medication Administration Document 09/02/21 07:00 (Rec: 09/02/21 07:00 [id number]) Type of Injection IM/SQ Injection Yes Antibiotic IM Injection No Injection Site MAR Injection Site Right Lower Quad Enoxaparin Sodium (Enoxaparin Sodium 80 Mg/0.8 Ml Syringe) Confirm Admini stered Dose 80 mg SQ .STK-MED ONE Stop: 09/02/21 07:00 Sodium Chloride (Sodium Chloride 0.9% 1000 Ml) 1,000 mls @ 100 mls/hr IV .Q10H [facility] Stop: 10/01/21 16:59 Last Admin: 09/03/21 09:14 Dose: Not Given Documented by: [email or web address] Non-Admin Reason: DC Admin: 09/02/21 07:00 Dose: 100 mls/hr Documented by: SHIV ED IV Start & Stop Times Document 09/02/21 07:00 (Rec: 09/02/21 07:00 [id number]) IV Hydration (IV FLUIDS) IV Hydration Start Date 09/02/21 IV Hydation Start Time 07:00 Med Admininistration (IV,IVP) Document 09/02/21 07:00 (Rec: 09/02/21 07:00 [id number]) Type of Administration Initial IV Push No Infusion/Titration Document 09/02/21 07:00 RM (Rec: 09/02/21 07:00 RM [id number]) Dosing & Rate IV Rate 100 Increase/Decrease Started/Running Cumulative Dose Not Applicable IV Intake Cumulative Intake (Rx) 1,000 Container Volume 1,000 Volume Adjustment/Waste 0 Infusion: 09/02/21 03:26 Dose: 100 mls/hr Documented by: SHIV Infusion/Titration Document 09/02/21 03:26 (Rec: 09/02/21 03:26 [id number]) Dosing & Rate IV Rate 100 Increase/Decrease Infused Cumulative Dose Not Applicable IV Intake Infusion Intake 1,000 Cumulative Intake (Bag) 1,000 Cumulative Intake (Rx) 1,000 Container Volume 0 Volume Adjustment/Waste 0 Admin: 09/01/21 17:25 Dose: 100 mls/hr Documented by: PARKER Med Admininistration (IV,IVP) Document 09/01/21 17:25 KB (Rec: 09/01/21 17:25 KB [id number]) Type of Administration Initial IV Push No Infusion/Titration Document 09/01/21 17:25 KB (Rec: 09/01/21 17:25 KB [id number]) Dosing & Rate IV Rate 100 Increase/Decrease Started Cumulative Dose Not Applicable IV Intake Container Volume 1,000 Volume Adjustment/Waste 0 Sodium Chloride (Sodium Chloride 0.9% 1000 Ml) Confirm Administered Dose 1,000 mls @ ud .ROUTE .STK-MED ONE Stop: 09/02/21 07:00 Sodium Chloride (Sodium Chloride 0.9% 1000 Ml) Confirm Administered Dose 1,000 mls @ ud .ROUTE .STK-MED ONE Stop: 09/01/21 17:12 Sodium Chloride (Sodium Chloride 0.9% 1000 Ml) Confirm Administered Dose 1,000 mls @ ud .ROUTE .STK-MED ONE Stop: 09/01/21 17:27 Ondansetron HCl (Ondansetron Hcl 4 Mg/2 Ml Vial) 4 mg IV Q6H PRN PRN PRN Reason: NAUSEA/VOMITING Stop: 10/02/21 06:46 Last Vital Signs Temp 98.6 F 09/03/21 08:00 Pulse 60 09/03/21 08:00 Resp 23 09/03/21 08:00 BP 148/78 09/03/21 08:00 Pulse Ox 97 09/03/21 08:00 Allergies No Known Drug Allergies Allergy (Verified 09/01/21 16:36) Active Medications Acetaminophen (Acetaminophen 325 Mg Tablet) 650 mg PO Q4H PRN PRN PRN Reason: PAIN, FEVER, HEADACHE Stop: 10/02/21 06:46 Apixaban (Apixaban 2.5 Mg Tablet) 10 mg PO BID [facility] Stop: 10/02/21 06:46 Last Admin: 09/03/21 08:49 Dose: 10 mg Glimepiride (Glimepiride 4 Mg Tablet) 4 mg PO [facility]ST [facility] Stop: 10/02/21 15:59 Last Admin: 09/03/21 08:48 Dose: 4 mg Ondansetron HCl (Ondansetron Hcl 4 Mg/2 Ml Vial) 4 mg IV Q6H PRN PRN PRN Reason: NAUSEA/VOMITING Stop: 10/02/21 06:46 Simvastatin (Simvastatin 20 Mg Tablet) 20 mg PO DAILY [facility] Stop: 10/02/21 14:59 Last Admin: 09/03/21 08:49 Dose: 20 mg Intake & Output 09/02/21 09/03/21 11:59 11:59 Intake Total 1360 Output Total 300 Balance -300 1360 Weight 86.4 kg 87.7 kg Orders 09/02/21 13:33 Pulse Oximetry .spot check 09/02/21 13:51 POCT Glucose Check [facility] 09/02/21 15:00 Simvastatin 20Mg [Zocor 20Mg] 20 mg PO DAILY 09/02/21 Dinner Consistent Carbohydrate Diet 2000 Calorie Glimepiride 4 mg [Amaryl 4 mg] 4 mg PO BREAKFAST 09/03/21 Discharge Routine Discharge/Telephone Order Routine 09/03/21 08:25 Qualify for Home Oxygen TODAY 09/03/21 09:43 WALK [Walk With Assistance] TOLERATED 09/03/21 09:46 Miscellaneous Nursing Order ROUTINE Lab Tests 09/02/21 09/02/21 09/03/21 16:46 20:33 05:10 POC Glucometer 199 H 193 H Hemoglobin A1c 6.93 H 09/03/21 07:44 POC Glucometer 78 Hemoglobin A1c Microbiology 09/01/21 17:49 Blood Blood Culture - Preliminary NO GROWTH TO DATE 09/01/21 17:30 Blood Blood Culture - Preliminary NO GROWTH TO DATE Code(s): I26.99 - OTHER PULMONARY EMBOLISM WITHOUT ACUTE COR PULMONALE (2) Shortness of breath Current Visit: Yes Status: Acute Code(s): R06.02 - SHORTNESS OF BREATH - Discharge Discharge Date: 09/03/21 Disposition: Home, Self-Care Condition: Stable Prescriptions: New Rivaroxaban [Xarelto] 1 each PO UD #1 packet No Action Atorvastatin Calcium [Lipitor 20MG Tablet] 20 mg PO DAILY Glimepiride 4 mg [Amaryl 4 mg] 4 mg PO DAILY Instructions: Pulmonary Embolism (Blood Clot in the Lungs), Rivaroxaban, Pulmonary Embolism (Blood Clot in the Lungs) (DC) Additional Instructions: Take Xarelto with food Follow up with: BROOKS JJ MD [Primary Care Provider] - Call for Appointment
[2021-09-03 14:17] VITALS: BP 137/89; PULSE 76; O2SAT 92
== END 2021-09-03 12:56 | disposition home or self-care (01) ==
LOC: ED 15:49 → MED SURG 09-02 12:35 → ED 09-02 12:40
PROVIDERS: ADMIT General Practice; ATTEND General Practice
DX: I26.99 Other pulmonary embolism without acute cor pulmonale (principal); R07.89 Other chest pain; E11.9 Type 2 diabetes mellitus without complications; E78.00 Pure hypercholesterolemia, unspecified; Z79.899 Other long term (current) drug therapy; Z20.828 Contact with and (suspected) exposure to other viral communicable diseases
CPT/HCPCS: 0241U; 36000; 36415; 71045; 71260; 80053; 82947; 83036; 83605; 84484; 85025; 85379; 86308; 87040; 87400; 87651; 93005; 93041; 94760; 96372; 99285; 99291; G0378; J1650; A9270-GY